=== PATIENT | male | born 1950 | race Caucasian/White ===

== ENCOUNTER 2017-11-24 10:56 | Observation (INO) | payer MEDICARE ==
[2017-11-24 11:41] LABS: Band 4 % (5-11); Hemoglobin 14.8 g/dL (14.0-18.0); Lymphocytes 3 % (21-51); MDiff Complete? YES; Mean Corpuscular HGB CONC 33.2 g/dL (32.0-36.0); Mean Corpuscular Hemoglobin 29.9 pg (27.0-31.0); Mean Corpuscular Volume 90.2 fl (80.0-94.0); Mean Platelet Volume 9.1 fL (7.4-10.4); Monocytes 3 % (0-10); Neutrophil 90 % (42-75); Platelet Count 127 thou/uL (130-400); RBC Distribution Width 11.6 % (11.5-14.5); Red Blood Cell (RBC) Count 4.93 mill/uL (4.70-6.10); White Blood Cell (WBC) Count 13.7 thou/uL (4.8-10.8)
[2017-11-24 11:45] LABS: CKMB 3.7 ng/mL (0-6.6); Troponin I Less than 0.010 ng/mL (< 0.028)
[2017-11-24 11:49] LABS: ALT (SGPT) 20 U/L (8-55); AST (SGOT) 22 U/L (5-34); Albumin 4.2 g/dL (3.4-4.8); Alkaline Phosphatase 72 U/L (40-150); Anion Gap 10 mmol/L (10-20); BUN (Urea Nitrogen) 15 mg/dL (8.4-25.7); Bilirubin, Total 0.9 mg/dL (0.2-1.2); CK (CPK) 221 U/L (30-200); Calc. Creatinine Clearance 0 mL/min (70-130); Calcium 9.4 mg/dL (7.8-10.44); Carbon Dioxide 24 mmol/L (23-31); Chloride 105 mmol/L (98-107); Estimated GFR-MDRD 63; Globulin 3.1 g/dL (2.4-3.5); Glucose 127 mg/dL (80-115); Lipase 24 U/L (8-78); Potassium 4.1 mmol/L (3.5-5.1); Protein, Total 7.3 g/dL (5.8-8.1); Sodium 135 mmol/L (136-145)
[2017-11-24] MEDS ORDERED: Nitroglycerin 2% Ointment 1 INCH/1 GM Packet ONE (12:15)
--- NOTE | 2017-11-24 13:51 | RAD ---
PORTABLE CHEST: HISTORY: Chest pain. FINDINGS: The lung morel are clear of infiltrate. Small nodular density in the left peripheral lung may be ca lcified. Vascular markings are normal. Heart size is normal. IMPRESSION: No evidence of acute process. POS: [facility]
[2017-11-24 14:46] LABS: Troponin I Less than 0.010 ng/mL (< 0.028)
[2017-11-24] MEDS ORDERED: Benzonatate 100 MG CAP PO PRN (17:04)
[2017-11-24] MEDS ORDERED: cloNIDine 0.1 MG TAB PO PRN (17:04)
[2017-11-24] MEDS ORDERED: Acetaminophen 325 MG TAB PO PRN (17:04)
[2017-11-24] MEDS ORDERED: hydrALAZINE 20 MG/ML VIAL SLOW IVP PRN (17:04)
[2017-11-24] MEDS ORDERED: Bisacodyl 5 MG TAB PO PRN (17:04)
[2017-11-24] MEDS ORDERED: Loratadine 10 MG TAB PO PRN (17:04)
[2017-11-24] MEDS ORDERED: Lorazepam 1 MG TAB PO PRN (17:04)
[2017-11-24] MEDS ORDERED: Ondansetron HCl/PF 4 MG/2 ML Vial IVP PRN (17:04)
[2017-11-24] MEDS ORDERED: Nitroglycerin 0.4 MG TAB (25 Tab Bottle) PO PRN (17:04)
[2017-11-24] MEDS ORDERED: Nitroglycerin 0.4 MG TAB (25 Tab Bottle) SL PRN (17:04)
[2017-11-24] MEDS ORDERED: Senokot 8.6 MG TAB PO PRN (17:04)
[2017-11-24] MEDS ORDERED: HYDROcodone/Acetaminophen 5/325 mg Tablet PO PRN (17:04)
[2017-11-24] MEDS ORDERED: Mag-Al 1200 mg/1200 mg/30 ML UDCUP PO PRN (17:04)
[2017-11-24] MEDS ORDERED: traMADol HCl 50 MG TAB PO PRN (17:04)
[2017-11-24 17:05] VITALS: BMI 27.4
[2017-11-24 17:28] LABS: Cardiac Risk 3.9 (Less than 4.5)
[2017-11-24 17:32] LABS: Troponin I Less than 0.010 ng/mL (< 0.028)
[2017-11-24] MEDS: Fluticasone Propionate Nasal Spray 16 gm Bottle NASAL SCH (19:43)
[2017-11-24] MEDS: guaiFENesin ER 600 MG TAB PO SCH (20:28)
[2017-11-24] MEDS: Famotidine 20 MG TAB PO SCH (20:28)
[2017-11-24 20:34] LABS: Troponin I Less than 0.010 ng/mL (< 0.028)
--- NOTE | 2017-11-24 21:49 | HP ---
DATE OF ADMISSION: 11/24/2017 CHIEF COMPLAINT: Chest pain. PRIMARY CARE PHYSICIAN: Jessica Barnes M.D. HISTORY OF PRESENT ILLNESS: Mr. Pacheco is a 66-year-old male without any significant past medical history, who presented to the emergency room with the above-mentioned complaint. History is mainly obtained by the patient himself and electronic medical records have been reviewed. The case h as been discussed with the admitting ER physician. Mr. Pacheco reports that he has been having on and off mild left-sided chest pain for years. However, for the last 2 days, the pain has become very prominent and disabling. He describes it as a 10/10 s ensation. It feels like somebody is squeezing his heart. He also has dizziness, shortness of breath , and some sweating with this pain. 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 He denies any significant trauma, but he does report lifting about a 2 00-pound deer into his truck 2 days ago. He, however, denies any other muscle achiness or soreness. He does have sick contacts in the form of his having some respiratory symptoms, who is on amoxi cillin at this time. The patient otherwise denies any other illnesses or symptoms. He does not have any family history of coronary artery disease. He is a nonsmoker. He has no history of diabetes, hypertension, or dyslip idemia either. In the emergency room, he has been hemodynamically stable and his initial workup is unremarkable incl uding a 12-lead EKG and serial cardiac enzymes x2. He does have mild leukocytosis of 13.7. He does endorse some congestion, mild sinus headache, and low grade fever. The fever had started just this m orning. Notably, his rapid influenza swab is negative. He, at this time, is declining respiratory v iral panel. He will be admitted for acute coronary syndrome rule out and cardiac stratification. He had a cardia c workup done about 15 years ago for a syncopal episode including cardiac monitoring as well as a str ess test, which was normal. PAST MEDICAL HISTORY: None reviewed with the patient. PAST SURGICAL HISTORY: Hernia repair. PSYCHIATRIC HISTORY: None. No anxiety, depression. SOCIAL HISTORY: No history of drug, tobacco, or alcohol abuse. 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 FAMILY HISTORY: No significant family history of premature coronary artery disease, stroke, cancer, or diabetes. ALLERGIES: No known medication allergies. CURRENT MEDICATIONS: None reviewed with the patient. REVIEW OF SYSTEMS: The following complete review of systems was negative, unless otherwise mentioned in the HPI or below: Constitutional: Weight loss or gain, ability to conduct usual activities. Skin: Rash, itching. Eyes: Double vision, pain. ENT/Mouth: Nose bleeding, neck stiffness, pain, tenderness. Cardiovascular: Palpitations, dyspnea on exertion, orthopnea. Respiratory: Shortness of breath, wheezing, cough, hemoptysis, fever, or night sweats. Gastrointestinal: Poor appetite, abdominal pain, heartburn, nausea, vomiting, constipation, or diarr hea. Genitourinary: Urgency, frequency, dysuria, nocturia. Musculoskeletal: Pain, swelling. Neurologic/Psychiatric: Anxiety, depression. Allergy/Immunologic: Skin rash, bleeding tendency. LABORATORY DATA: CBC shows WBCs of 13.7 with 90% neutrophils. D-dimer is 0.28. Serum chemistries s how sodium of 134, glucose 127, creatinine kinase 221. Cardiac enzymes and BNP are within normal stern its. IMAGING: A 12-lead EKG by my review has been normal sinus rhythm without any acute ST or T wave robin ges. Chest x-ray by my review shows no acute cardiopulmonary abnormality. He does not have any pulm onary edema, infiltrate, or effusions. PHYSICAL EXAMINATION: VITAL SIGNS: Upon presentation include blood pressure 141/70, pulse of 105, respirations 20, saturat ing 97% on room air, temperature 99.1. GENERAL: No acute distress, awake, alert, oriented x3, very pleasant. HEENT: Mucous membrane is moist and pink. No oropharyngeal exudate or erythema. Head is normocepha lic, atraumatic. Pupils equal, reactive to light and accommodation. Extraocular movements are intac t. NECK: Supple without any lymphadenopathy, JVD, or bruit. CHEST: Clear to auscultation without any wheezing, rales, or rhonchi. Rate and rhythm are regular w ithout any murmur, rubs, or gallops. There is no tenderness to palpation on his chest anteriorly. ABDOMEN: Soft, nontender, nondistended with positive bowel sounds. EXTREMITIES: Free of any cyanosis, clubbing, or edema. NEUROLOGIC: Nonfocal. SKIN: Free of any rashes or bruises. Feels warm and dry to touch. PSYCHIATRIC: Normal affect. IMPRESSION AND PLAN: 1. Chest pain. The patient's symptoms are quite concerning given the severity of his symptoms. He does not have any risk factor per se except for advanced age. However, we will admit him for further cardiac testing. We will continue to trend serial cardiac enzymes. He has received aspirin in the emergency room, and we will continue that for now and check lipid panel. Also, obtain a nuclear medi cine stress test at this point. His symptoms can be secondary to mild rhabdomyolysis as well as evid ent by mild elevation of CPK. 2. Leukocytosis, likely secondary to viral respiratory illness. We will add decongestants and nasal spray. The patient is refusing the respiratory viral panel. 3. Deep venous thrombosis and gastrointestinal prophylaxis. 4. Code status: Full code discussed with the patient. DISPOSITION: Mr. Pacheco is being admitted for further risk stratification and ACS rule out. Further management will depend upon his clinical course. He is currently observation status.
[2017-11-25 05:27] LABS: Anion Gap 11 mmol/L (10-20); BUN (Urea Nitrogen) 15 mg/dL (8.4-25.7); Calc. Creatinine Clearance 86 mL/min (70-130); Carbon Dioxide 22 mmol/L (23-31); Chloride 108 mmol/L (98-107); Estimated GFR-MDRD 67; Glucose 105 mg/dL (80-115); Potassium 4.1 mmol/L (3.5-5.1); Sodium 137 mmol/L (136-145)
[2017-11-25 05:46] LABS: #Lymphocytes 1.7 thou/uL (1.20-3.40); #Monocytes 0.7 thou/uL (0.11-0.59); #Neutrophils 9.1 thou/uL (1.40-6.50); %Basophils 0.1 % (0.0-1.0); %Eosinophils 0.3 % (0.0-10.0); %Lymphocytes 14.5 % (21.0-51.0); %Monocytes 5.7 % (0.0-10.0); %Neutrophils 79.3 % (42.0-75.0); Hemoglobin 13.9 g/dL (14.0-18.0); Mean Corpuscular HGB CONC 33.4 g/dL (32.0-36.0); Mean Corpuscular Hemoglobin 30.2 pg (27.0-31.0); Mean Corpuscular Volume 90.2 fl (80.0-94.0); Platelet Count 111 thou/uL (130-400); RBC Distribution Width 11.7 % (11.5-14.5); Red Blood Cell (RBC) Count 4.62 mill/uL (4.70-6.10); White Blood Cell (WBC) Count 11.5 thou/uL (4.8-10.8)
[2017-11-25 05:47] LABS: PLT Morphology Comment Appears Decreased
[2017-11-25] MEDS ORDERED: Aspirin 325 MG TAB PO SCH (09:00)
[2017-11-25] MEDS ORDERED: Enoxaparin Sodium 40 MG/0.4 ML SYRINGE SC SCH (09:00)
--- NOTE | 2017-11-25 10:46 | STRESS ---
Acquisition Time: 2017-11-25 09:11:43 Total Exercise Time: 00:04:00 Test Indications: CHEST PAIN Medications: Protocol: ADENOSINE Max HR: 100 BPM 64% of Pred: 156 BPM Max BP: 136/070 mmHG Max Work Load: 1.0 METS RESTING ECG: NORMAL SINUS RHYTHM AT 87 BPM SYMPTOMS: CHEST PAIN NORMAL BP RESPONSE ECTOPY: NONE ECG STRESS: NO SIGNIFICANT CHANGES INTERPRETATION: AWAIT NUCLEAR IMAGES FOR DEFINITIVE DIAGNOSIS Confirmed by PRUDENCE COLLAZO ([id number]), photo editor ROLANDO ACOSTA ([id number]) on 11/25/2017 10:45:59 AM Referred By: MD Marvin MOLINA Confirmed By:PRUDENCE COLLAZO
[2017-11-25] MEDS: Famotidine 20 MG TAB PO SCH (11:49)
[2017-11-25] MEDS: guaiFENesin ER 600 MG TAB PO SCH (11:49)
[2017-11-25] MEDS: Fluticasone Propionate Nasal Spray 16 gm Bottle NASAL SCH (11:50)
[2017-11-25 12:15] VITALS: BP 130/61; TEMP 98.7
--- NOTE | 2017-11-25 12:22 | NM ---
NUCLEAR MEDICINE CARDIAC STRESS TEST WITH EJECTION FRACTION: HISTORY: Chest pain. COMPARISON: None. TECHNIQUE: Stress and rest performed after the intravenous administration of 30 and 9.6 mCi Technetium 99m sesta mibi. The exam was performed using nuclear adenosine stress protocol. FINDINGS: No ischemia or scar. Normal wall motion. Normal ejection fraction 68%. IMPRESSION: Normal exam. POS: [facility]
[2017-11-25] MEDS ORDERED: ADENOSINE 60 MG/20 ML VIAL ONE (17:23)
--- NOTE | 2017-11-25 21:03 | DIS ---
DATE OF ADMISSION: 11/24/2017 DATE OF DISCHARGE: 11/25/2017 PRIMARY CARE PHYSICIAN: None. DISCHARGE DIAGNOSIS: Noncardiac chest pain. DISCHARGE MEDICATIONS: None. PROCEDURES: Nuclear medicine stress test, which is negative for any acute ischemia or old scar. EF of 68%. HISTORY OF PRESENT ILLNESS: Mr. Pacheco is a very healthy 66-year-old male, who presented to the doctors hospital room with complaints of 2 days' duration of severe chest pain. His initial workup including EK G and troponins were unremarkable, and he was admitted for further evaluation. Please see admission history and physical dictated by myself. The patient has no discernible risk factors except for the age and male sex at this time. He does not smoke and has no significant family history of the same. He does not have hypertension or dyslipidemia. HOSPITAL COURSE: The patient had improvement in his symptoms with nitroglycerin and his chest pain d id not recur. He did have a somewhat elevated CPK, which likely was secondary to him lifting a 200-p ound deer 2 days ago. He underwent a stress test, which was unremarkable. Serial cardiac enzymes we re unremarkable. Lipid panel was unremarkable. He did have mild elevation of WBCs upon presentation , likely a viral upper respiratory infection. He was treated with Flonase and Mucinex and had improv ement in his symptoms. On the day of discharge, he is hemodynamically stable and cleared for discharge, as ACS has been rule d out. He was seen and examined prior to discharge: PHYSICAL EXAMINATION: VITAL SIGNS: Temperature 98.7, pulse of 94, respirations 16, saturating 96% on room air, blood press ure 130/61, in no acute distress. CHEST: Clear to auscultation bilaterally. HEART: Rate and rhythm is regular. NEUROLOGICAL EXAMINATION: Nonfocal. LABORATORY EXAMINATION: Troponin less than 0.010 x4. Lipid panel within normal limits. Creatine ki nase 218, repeat creatine kinase 221. BNP within normal limits. D-dimer 0.28.
== END 2017-11-25 12:46 | disposition home or self-care (01) ==
LOC: ERS 10:56 → 2SW 16:42
PROVIDERS: ADMIT Internal Medicine; ATTEND Internal Medicine
DX: R07.89 Other chest pain (principal); R74.8 Abnormal levels of other serum enzymes; D72.829 Elevated white blood cell count, unspecified; Z98.890 Other specified postprocedural states
CPT/HCPCS: 71045; 78452; 80048; 80053; 80061; 82550 ×2; 82553; 83690; 83880; 84484 ×2; 85025 ×2; 85379; 87804 ×2; 93005; 93017; 94760; 99285; A9500; G0378; 36415; J0153